=== PATIENT | male | born 1975 | race Two or more races ===

== ENCOUNTER 2018-11-08 06:17 | Emergency (ER) | payer OTHER ==
[~2018-11-08] VITALS: Ht 177.8 cm; Wt 99.8 kg
[2018-11-08 07:03] LABS: Urine Bacteria NONE SEEN /hpf (None Seen); Urine Blood Negative /uL (Negative); Urine Mucus FEW (None Seen); Urine Specific Gravity 1.019 (1.001-1.035); Urine WBC 15 /hpf (0 - 3)
[2018-11-08 07:57] LABS: Basophils # (auto) 0 uL; Basophils % (auto) 0.3 % (0.0-2.0); Eosinophils # (auto) 0.1 uL; Eosinophils % (auto) 1.2 % (0.0-7.0); Hematocrit 42.7 % (41.0-53.0); Hemoglobin 14.3 g/dL (13.5-17.5); Lymphocytes # (auto) 1.4 uL; Lymphocytes % (auto) 22.5 % (10.0-50.0); Mean Corpuscular Hemoglobin 28.9 pg (28.0-32.0); Mean Corpuscular Hgb Conc. 33.5 g/dL (32.0-36.0); Mean Corpuscular Volume 86.5 fL (80.0-100.0); Monocytes # (auto) 0.3 uL; Monocytes % (auto) 5.3 % (0.0-12.0); Neutrophils # (auto) 4.5 uL; Neutrophils % (auto) 70.7 % (37.0-80.0); Nucleated Red Blood Cells % 0.1 %; Platelet Count (auto) 387 10^3/uL (140-450); Red Blood Cells 4.94 10^6/uL (4.5-5.90); Red Cell Distribution Width 13.9 % (11.8-14.3); White Blood Cell 6.4 10^3/uL (4.4-10.8)
[2018-11-08 08:12] LABS: INR 1.01 (0.9-1.15); Partial Thromboplastin Time 33.2 sec (23.78-33.04); Prothrombin Time 10.8 sec (9.27-12.13)
[2018-11-08 08:21] LABS: Potassium 3.8 mmol/L (3.5-5.1)
[2018-11-08 08:24] LABS: Albumin 3.9 g/dL (3.4-5.0); BUN/Creatinine Ratio 12.8; Calcium 8.6 mg/dL (8.5-10.1); Magnesium 2.6 mg/dL (1.6-2.6)
[2018-11-08 08:27] LABS: Bilirubin, Total 0.7 mg/dL (0.2-1.0); Total Protein 8.4 g/dL (6.4-8.2)
[2018-11-08 09:25] VITALS: BP 107/67
[2018-11-08] MEDS ORDERED: cefTRIAXone SOD 1,000 MG VL IM ONE (10:15)
== END 2018-11-08 10:41 | disposition home or self-care (01) ==
LOC: ER 06:17
DX: N39.0 Urinary tract infection, site not specified (principal); N45.1 Epididymitis; Z90.49 Acquired absence of other specified parts of digestive tract
CPT/HCPCS: 36415; 74176; 76870; 80053; 81001; 82150; 83690; 83735; 85025; 85610; 85730; 96372; 99284; J0696

== ENCOUNTER 2023-03-07 12:31 | Emergency (ER) | payer OTHER ==
[~2023-03-07] VITALS: Ht 177.8 cm; Wt 107.0 kg
[2023-03-07 13:58] VITALS: BP 126/79; PULSE 81; RESP 18; TEMP 98.5; O2SAT 97
[2023-03-07] MEDS ORDERED: KETOROLAC TROMETH 60MG/2ML VIAL IM ONE (15:00)
== END 2023-03-07 16:05 | disposition home or self-care (01) ==
LOC: ER 12:31
DX: S00.81XA Abrasion of other part of head, initial encounter (principal); M25.532 Pain in left wrist; Z90.49 Acquired absence of other specified parts of digestive tract; V89.2XXA Person injured in unspecified motor-vehicle accident, traffic, initial encounter; Y93.89 Activity, other specified; Y92.89 Other specified places as the place of occurrence of the external cause; Y99.8 Other external cause status
CPT/HCPCS: 73100; 96372; 99283; J1885

== ENCOUNTER 2023-03-10 04:20 | Emergency (ER) | payer OTHER ==
[~2023-03-10] VITALS: Ht 177.8 cm; Wt 97.7 kg
[2023-03-10 05:26] LABS: Urine Bacteria NONE SEEN /hpf (None Seen); Urine Blood 1+ /uL (Negative); Urine Clarity Clear (Clear); Urine Color Colorless (Yellow); Urine Mucus FEW (None Seen); Urine Protein, UAD 3+ (Negative); Urine Specific Gravity 1.006 (1.001-1.035); Urine Urobilinogen Normal (Negative); Urine WBC 2 /hpf (0 - 3); Urine pH 6.5 (5.0-8.0)
[2023-03-10 06:16] LABS: Basophils # (auto) 0 10 ^3/uL (0-0.2); Basophils % (auto) 0.1 % (0.0-2.0); Eosinophils # (auto) 0 10 ^3/uL (0-0.8); Eosinophils % (auto) 0.4 % (0.0-7.0); Hematocrit 43.1 % (41.0-53.0); Hemoglobin 14.5 g/dL (13.5-17.5); Lymphocytes # (auto) 0.9 10 ^3/uL (0.4-5.4); Lymphocytes % (auto) 7.5 % (10.0-50.0); Mean Corpuscular Hgb Conc. 33.6 g/dL (32.0-36.0); Mean Corpuscular Volume 86.4 fL (80.0-100.0); Monocytes # (auto) 0.7 10 ^3/uL (0-1.3); Monocytes % (auto) 5.4 % (0.0-12.0); Neutrophils # (auto) 10.4 10 ^3/uL (1.6-8.6); Neutrophils % (auto) 86.6 % (37.0-80.0); Nucleated Red Blood Cells % 0.1 %; Red Blood Cells 4.99 10^6/uL (4.5-5.90); Red Cell Distribution Width 13.7 % (11.8-14.3)
[2023-03-10] MEDS ORDERED: IOHEXOL 300 MG/ML 100ML BOTTLE IJ ONE (06:23)
[2023-03-10] MEDS ORDERED: KETOROLAC TROMETH 30 MG/ML 1ML VIAL IV ONE (06:30)
[2023-03-10 06:36] LABS: Albumin 3.4 g/dL (3.4-5.0); Calcium 8.7 mg/dL (8.5-10.1); Potassium 3.8 mmol/L (3.5-5.1)
[2023-03-10 06:40] LABS: BUN/Creatinine Ratio 10.1 (10.0-20.0); Bilirubin, Total 1.4 mg/dL (0.2-1.0); Total Protein 7.3 g/dL (6.4-8.2)
[2023-03-10] MEDS ORDERED: TRAM50TA2 PO (07:06)
[2023-03-10 07:22] VITALS: BP 128/80; PULSE 54; RESP 17; O2SAT 99
== END 2023-03-10 07:29 | disposition home or self-care (01) ==
LOC: ER 04:20
DX: M79.18 Myalgia, other site (principal); R10.84 Generalized abdominal pain; M54.50 Low back pain, unspecified; D72.829 Elevated white blood cell count, unspecified; R51.9 Headache, unspecified; Z90.49 Acquired absence of other specified parts of digestive tract
CPT/HCPCS: 36415; 70450; 71250; 74176; 74177; 80053; 81001; 83690; 85025; 96374; 99285; J1885; Q9967

== ENCOUNTER 2024-04-26 06:28 | Emergency (ER) | payer MEDICAID, OTHER ==
[~2024-04-26] VITALS: Ht 177.8 cm; Wt 99.7 kg
[~2024-04-26 06:28] MED LIST: TRAM50TA2 PO
[2024-04-26 08:05] LABS: Urine Bacteria None Seen /hpf (None Seen)
[2024-04-26 08:31] LABS: Urine Blood Negative /uL (Negative); Urine Clarity Clear (Clear); Urine Color Colorless (Yellow); Urine Protein, UAD Negative (Negative); Urine Specific Gravity 1.004 (1.001-1.035); Urine Urobilinogen Normal (Negative); Urine WBC <1 /hpf (0 - 3); Urine pH 6.5 (5.0-9.0)
[2024-04-26 08:32] LABS: Basophils # (auto) 0 10 ^3/uL (0-0.2); Basophils % (auto) 0.5 % (0.0-2.0); Eosinophils # (auto) 0.2 10 ^3/uL (0-0.8); Eosinophils % (auto) 2.4 % (0.0-7.0); Hematocrit 45.1 % (41.0-53.0); Hemoglobin 15.8 g/dL (13.5-17.5); Lymphocytes # (auto) 2.2 10 ^3/uL (0.4-5.4); Lymphocytes % (auto) 26.3 % (10.0-50.0); Mean Corpuscular Hemoglobin 30.1 pg (28.0-32.0); Mean Corpuscular Hgb Conc. 34.9 g/dL (32.0-36.0); Mean Corpuscular Volume 86.1 fL (80.0-100.0); Monocytes # (auto) 0.3 10 ^3/uL (0-1.3); Neutrophils # (auto) 5.5 10 ^3/uL (1.6-8.6); Neutrophils % (auto) 66.8 % (37.0-80.0); Platelet Count (auto) 319 10^3/uL (140-450); Red Blood Cells 5.24 10^6/uL (4.5-5.90); White Blood Cell 8.2 10^3/uL (4.4-10.8)
[2024-04-26 08:45] LABS: Alanine Aminotransferase 39 U/L (7-40); Albumin 4.9 g/dL (3.2-4.8); Alkaline Phosphatase 61 U/L (46-116); Anion Gap 7 (5-15); Aspartate Aminotransferase 27 U/L (13-40); Bilirubin, Total 1.8 mg/dL (0.2-1.0); Blood Urea Nitrogen 10 mg/dL (9-23); Calcium 9.7 mg/dL (8.7-10.4); Carbon Dioxide 27 mmol/L (20-30); Chloride 104 mmol/L (98-107); Glucose 90 mg/dL (74-106); Potassium 3.9 mmol/L (3.5-5.1); Sodium 138 mmol/L (136-145); Total Protein 7.9 g/dL (5.7-8.2)
[2024-04-26 08:48] LABS: BUN/Creatinine Ratio 10.1 (10.0-20.0)
[2024-04-26 09:46] VITALS: BP 116/72; PULSE 62; RESP 16; TEMP 98.9; O2SAT 99
== END 2024-04-26 11:09 | disposition left against medical advice (07) ==
LOC: ER 06:28
DX: R10.11 Right upper quadrant pain (principal); Z90.49 Acquired absence of other specified parts of digestive tract
CPT/HCPCS: 36415; 74176; 80053; 81001; 85025

== ENCOUNTER 2024-09-05 06:59 | Inpatient (IN) | payer MEDICAID ==
[2024-09-05] VITALS (7 sets, daily range): BP systolic 121–136; BP diastolic 54–88; PULSE 68–86; RESP 14–20; TEMP 98.1–98.4; O2SAT 96–98
[~2024-09-05] VITALS: Ht 177.8 cm; Wt 96.6 kg
--- NOTE | 2024-09-05 07:26 | ED.PDOC ---
History of Present Illness HPI Comments 48 y/o M, presents to the ED for CC of rectal bleeding. Patient states, that he has been experiencing rectal bleeding x6days. Patient describes, stools to be bright red in color. Patient relays, that he is a company tanker truck driver and was unable to have a bowel movement x3days; patient comments on straining himself to try and have a bowel movement and is unsure if this could be the cause of his symptoms. Patient denies abdominal pain, abdominal distension, poor appetite, or N/V/D. No other symptoms or modifying factors at this time. Time Seen by MD: 07:20 Primary Care Provider: XIN Reviewed Notes: Nurses Notes, Medications, Allergies Allergies: Coded Allergies: NO KNOWN ALLERGIES (Unverified , 11/08/18) Home Meds Active Scripts Tramadol Hcl (Tramadol Hcl) 50 Mg Tab, 50 MG PO Q8HP PRN for 5 Days, #15 TAB Prov:TONEY HANEY MD 03/10/23 Information Source: Patient Mode of Arrival: Ambulatory Severity: Moderate Timing: Days Duration: Since onset Prehospital treatment: None Past Medical History PAST MEDICAL HISTORY: Denies Surgical History: Cholecystectomy Family History Family History: Family hx of Cancer, Family hx of HTN Social History Smoker: Non-Smoker Alcohol: Occasionally Drugs: Denies Drug Use Lives In: Home Constitutional: denies: chills, diaphoresis, fatigue, fever, malaise, sweats, weakness, others EENTM: denies: blurred vision, double vision, ear bleeding, ear discharge, ear drainage, ear pain, ear ringing, eye pain, eye redness, hearing loss, mouth pain, mouth swelling, nasal discharge, nose bleeding, nose congestion, nose pain, photophobia, tearing, throat pain, throat swelling, voice changes, others Respiratory: denies: cough, hemoptysis, orthopnea, SOB at rest, shortness of breath, SOB with excertion, stridor, wheezing, others Cardiovascular: denies: chest pain, dizzy spells, diaphoresis, Dyspnea on exertion, edema, irregular heart beat, left arm pain, lightheadedness, palpitations, PND, syncope, others Gastrointestinal: reports: constipated, rectal bleeding, rectal pain; denies: abdomen distended, abdominal pain, blood streaked bowels, diarrhea, dysphagia, difficulty swallowing, hematemesis, melena, nausea, poor appetite, poor fluid intake, vomiting, others Genitourinary: denies: burning, dysuria, flank pain, frequency, hematuria, incontinence, penile discharge, penile sore, pain, testicle pain, testicle swelling, urgency, others Neurological: denies: dizziness, fainting, headache, left sided numbness, left sided weakness, numbness, paresthesia, pre-existing deficit, right sided numbness, right sided weakness, seizure, speech problems, tingling, tremors, weakness, others Musculoskeletal: denies: back pain, gout, joint pain, joint swelling, muscle pain, muscle stiffness, neck pain, others Integumetry: denies: bruises, change in color, change in hair/nails, dryness, laceration, lesions, lumps, rash, wounds, others Allergic/Immunocompromised: denies: Difficulty Healing, Frequent Infections, Hives, Itching, others Hematologic/Lymphatic: denies: anemia, blood clots, easy bleeding, easy bruising, swollen glands, others Endocrine: denies: excessive hunger, excessive sweating, excessive thirst, excessive urination, flushing, intolerance to cold, intolerance to heat, unexplained weight gain, unexplained weight loss, others Psychiatric: denies: anxiety, bipolar disorder, depression, hopeless, panic disorder, schizophrenia, sleepless, suicidal, others All Other Systems: Reviewed and Negative Physical Exam General Appearance: Moderate Distress HEENT: Normal ENT Inspection, Pharynx Normal, TMs Normal Neck: Full Range of Motion, Non-Tender, Normal, Normal Inspection Respiratory: Chest Non-Tender, Lungs Clear, No Accessory Muscle Use, No Respiratory Distress, Normal Breath Sounds Cardiovascular: No Edema, No JVD, No Murmur, No Gallop, Normal Peripheral Pulses, Regular Rate/Rhythm Breast Exam: Deferred Gastrointestinal: No Organomegaly, Non Tender, No Pulsatile Mass, Normal Bowel Sounds, Soft Genitalia: Deferred Pelvic: Deferred Rectal: Hemorrhoids Extremities: No calf tenderness, Normal capillary refill, Normal inspection, Normal range of motion, Non-tender, No pedal edema Musculoskeletal : Apperance: Normal Neurologic: Alert, 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 Was a procedure done?: No Differential Dx Considerations may include: HEMORRHOIDS, GI BLEED X-Ray, Labs, Meds, VS Vital Signs Date Time Temp Pulse Resp B/P (MAP) Pulse Ox O2 Delivery O2 Flow Rate FiO2 09/05/24 07:20 97.0 82 18 117/80 (92) 98 Lab Test 09/05/24 07:29 Range/Units White Blood Count 9.5 4.4-10.8 10^3/uL Red Blood Count 5.27 4.5-5.90 10^6/uL Hemoglobin 15.8 13.5-17.5 g/dL Hematocrit 45.4 41.0-53.0 % Mean Corpuscular Volume 86.0 80.0-100.0 fL Mean Corpuscular Hemoglobin 30.0 28.0-32.0 pg Mean Corpuscular Hemoglobin Concent 34.8 32.0-36.0 g/dL Red Cell Distribution Width 14.0 11.8-14.3 % Platelet Count 288 140-450 10^3/uL Mean Platelet Volume 7.7 6.9-10.8 fL Neutrophils (%) (Auto) 81.1 H 37.0-80.0 % Lymphocytes (%) (Auto) 12.2 10.0-50.0 % Monocytes (%) (Auto) 4.9 0.0-12.0 % Eosinophils (%) (Auto) 1.4 0.0-7.0 % Basophils (%) (Auto) 0.4 0.0-2.0 % Neutrophils # (Auto) 7.7 1.6-8.6 10 ^3/uL Lymphocytes # (Auto) 1.2 0.4-5.4 10 ^3/uL Monocytes # (Auto) 0.5 0-1.3 10 ^3/uL Eosinophils # (Auto) 0.1 0-0.8 10 ^3/uL Basophils # (Auto) 0 0-0.2 10 ^3/uL Nucleated Red Blood Cells 0.1 % Sodium Level Pending Potassium Level Pending Chloride Level Pending Carbon Dioxide Level Pending Anion Gap Pending Blood Urea Nitrogen Pending Creatinine Pending Glomerular Filtration Rate Calc Pending BUN/Creatinine Ratio Pending Serum Glucose Pending Calcium Level Pending Patient alert. Having bright red blood per rectum. Vitals stable. Answering all questions. Possible hemorrhoid. Surgical consultation. WBC within normal limits. Hemoglobin within normal limits. Possible banding. Explained to the patient. Continue cardiac monitoring. Time of 1ST Reevaluation: 07:50 Reevaluation 1ST: Unchanged Patient Education/Counseling: Diagnosis, Treatment Family Education/Counseling: No Family Present Departure 1 Departure Time of Disposition: 08:25 Impression: Primary Impression: Rectal bleeding Additional Impression: Hemorrhoid Qualified Codes: K64.9 - Unspecified hemorrhoids Disposition: ADMITTED INPATIENT Admit to: Med Surg Condition: Guarded Critical Care Note Critical Care Time?: No Stability Stability form required: No Heart Score Heart Score: Heart Score Response (Comments) Value History N/A 0 EKG N/A 0 Age N/A 0 Risk Factors N/A 0 Troponin N/A 0 Total 0 I personally scribed for MARLENA MCKINNON MD ([email or web address]) on 09/05/24 at 07:26. Electronically submitted by Celina Mooney ([email or web address]). MARLENA MCKINNON MD Sep 05, 2024 07:26
[2024-09-05 07:55] LABS: Basophils # (auto) 0 10 ^3/uL (0-0.2); Basophils % (auto) 0.4 % (0.0-2.0); Eosinophils # (auto) 0.1 10 ^3/uL (0-0.8); Eosinophils % (auto) 1.4 % (0.0-7.0); Hematocrit 45.4 % (41.0-53.0); Hemoglobin 15.8 g/dL (13.5-17.5); Lymphocytes # (auto) 1.2 10 ^3/uL (0.4-5.4); Lymphocytes % (auto) 12.2 % (10.0-50.0); Mean Corpuscular Hgb Conc. 34.8 g/dL (32.0-36.0); Monocytes # (auto) 0.5 10 ^3/uL (0-1.3); Monocytes % (auto) 4.9 % (0.0-12.0); Neutrophils # (auto) 7.7 10 ^3/uL (1.6-8.6); Neutrophils % (auto) 81.1 % (37.0-80.0); Nucleated Red Blood Cells % 0.1 %; Platelet Count (auto) 288 10^3/uL (140-450); Red Blood Cells 5.27 10^6/uL (4.5-5.90); White Blood Cell 9.5 10^3/uL (4.4-10.8)
[2024-09-05 08:51] LABS: Chloride 102 mmol/L (98-107); Potassium 3.9 mmol/L (3.5-5.1); Sodium 136 mmol/L (136-145)
[2024-09-05] MEDS: ONDANSETRON HCL 4 MG/2 ML VIAL IV ONE (08:58)
[2024-09-05] MEDS: MORPHINE SULFATE INJ 2 MG/ml SYRG IV ONE (08:59)
[2024-09-05 09:00] LABS: BUN/Creatinine Ratio 9.3 (10.0-20.0); Blood Urea Nitrogen 9 mg/dL (9-23); Glucose 103 mg/dL (74-106)
[2024-09-05 09:12] LABS: Anion Gap 9 (5-15); Carbon Dioxide 25 mmol/L (20-31)
[2024-09-05] MEDS ORDERED: DOCUSATE SOD 100 MG CAP PO PRN (10:00)
[2024-09-05] MEDS ORDERED: ONDANSETRON HCL 4 MG/2 ML VIAL IV PRN (10:00)
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
[2024-09-05] MEDS: SODIUM CHLOR 0.9% PF (SALINE LOCK) 10ML VIAL/SYR IV SCH (14:05)
[2024-09-05] MEDS ORDERED: IBUP-1678 PO (14:07)
[2024-09-05 14:33] LABS: Hemoglobin 15.4 g/dL (13.5-17.5)
[2024-09-05] MEDS: HYDROcodone-ACET 5/325MG TAB PO PRN (15:02)
[2024-09-05] MEDS: ACETAMINOPHEN 325 MG TAB PO PRN (19:49)
[2024-09-05 23:24] LABS: Urine Bacteria None Seen /hpf (None Seen)
[2024-09-06] VITALS (8 sets, daily range): BP systolic 113–122; BP diastolic 72–84; PULSE 65–76; RESP 13–18; TEMP 97.7–98.2; O2SAT 94–99
[2024-09-06 00:10] LABS: Urine Blood TRACE /uL (Negative); Urine Clarity Clear (Clear); Urine Color Colorless (Yellow); Urine Protein, UAD Negative (Negative); Urine Specific Gravity 1.006 (1.001-1.035); Urine Squamous Epithelial Cell None Seen /hpf (<5); Urine Urobilinogen Normal (Negative); Urine WBC < 1 /HPF (0-3)
[2024-09-06 06:17] LABS: Basophils # (auto) 0 10 ^3/uL (0-0.2); Basophils % (auto) 0.7 % (0.0-2.0); Eosinophils # (auto) 0.2 10 ^3/uL (0-0.8); Eosinophils % (auto) 3.1 % (0.0-7.0); Hematocrit 43.7 % (41.0-53.0); Hemoglobin 15.3 g/dL (13.5-17.5); Lymphocytes # (auto) 1.3 10 ^3/uL (0.4-5.4); Lymphocytes % (auto) 23.9 % (10.0-50.0); Mean Corpuscular Hemoglobin 29.8 pg (28.0-32.0); Mean Corpuscular Hgb Conc. 34.9 g/dL (32.0-36.0); Mean Corpuscular Volume 85.5 fL (80.0-100.0); Monocytes # (auto) 0.5 10 ^3/uL (0-1.3); Neutrophils # (auto) 3.5 10 ^3/uL (1.6-8.6); Neutrophils % (auto) 63.3 % (37.0-80.0); Platelet Count (auto) 262 10^3/uL (140-450); Red Blood Cells 5.11 10^6/uL (4.5-5.90); Red Cell Distribution Width 13.9 % (11.8-14.3); White Blood Cell 5.5 10^3/uL (4.4-10.8)
[2024-09-06 06:37] LABS: Albumin 4.7 g/dL (3.2-4.8); Alkaline Phosphatase 84 U/L (46-116); Anion Gap 7 (5-15); BUN/Creatinine Ratio 8.4 (10.0-20.0); Bilirubin, Total 0.9 mg/dL (0.2-1.0); Calcium 9.5 mg/dL (8.7-10.4); Carbon Dioxide 29 mmol/L (20-31); Chloride 103 mmol/L (98-107); Potassium 3.9 mmol/L (3.5-5.1); Sodium 139 mmol/L (136-145); Total Protein 7.4 g/dL (5.7-8.2)
[2024-09-06 06:41] LABS: Alanine Aminotransferase 73 U/L (7-40); Aspartate Aminotransferase 77 U/L (13-40); Blood Urea Nitrogen 7 mg/dL (9-23); Glucose 97 mg/dL (74-106)
[2024-09-06] MEDS: GASTROGRAFIN 30 ML SOL ONE (13:54)
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
[2024-09-06] MEDS: HYDROCORTISONE ACET 25 MG RECTAL SUPP PR ONE (15:00)
[2024-09-06] MEDS: cefTRIAXone 1GM/50ML D5W 50 ML IV SCH (15:21)
--- NOTE | 2024-09-06 16:53 | DVHPN2 ---
Reviewed: Care Plan, H&P, Labs, Medications, Previous Orders, Radiology Changes from previous H/P or p: No Changes Eyes: No Pain, No Vision change, No Conjunctivae inflammation, No Eyelid inflammation, No Other, No Redness ENT: No Ear pain, No Ear discharge, No Nose pain, No Nose discharge, No Nose congestion, No Mouth pain, No Mouth swelling, No Throat pain, No Throat swelling, No Other Cardiovascular: No Chest Pain, No Palpitations, No Orthopnea, No Paroxysmal Noc. Dyspnea, No Edema, No Lt Headedness, No Other Respiratory: No Cough, No Dry, No Shortness of breath, No SOB with excertion, No Wheezing, No Hemoptysis, No Pleuritic Pain, No Sputum, No Other Gastrointestinal: No Nausea, No Vomiting, No Abdominal Pain, No Diarrhea; C onstipation; No Melena, No Hematochezia; Other (Rectal bleeding) Genitourinary: No Dysuria, No Frequency, No Incontinence, No Hematuria, No Retention, No Other Musculoskeletal: No other, No neck pain, No shoulder pain, No arm pain, No back pain, No hand pain, No leg pain, No foot pain Skin: No Rash, No Lesions, No Jaundice, No Bruising, No Other Objective Vitals Vital Signs Date Time Temp Pulse Resp B/P (MAP) Pulse Ox O2 Delivery O2 Flow Rate FiO2 09/06/24 16:42 98.0 70 16 116/79 (91) 98 98.0 09/06/24 08:00 Room Air* 0 21 Intake/Output Intake and Output 09/06/24 07:00 Intake Total 680 ml Output Total 500 ml Balance 180 ml Intake Oral 680 ml Output Urine Total 500 ml Stool Total 0 ml # Voids 1 Medications Current Medications Medications Dose Ordered Sig/Cori Route Start Time Stop Time Status Last Admin Dose Admin Sodium Chloride 10 ml Q8HR IV 09/05/24 14:00 09/06/24 13:35 10 ML Acetaminophen/ Hydrocodone Bitart 1 tab Q4HP PRN PO 09/05/24 10:00 09/06/24 12:02 1 TAB Ondansetron HCl 4 mg Q4HP PRN IV 09/05/24 10:00 Docusate Sodium 100 mg BIDPRN PRN PO 09/05/24 10:00 Acetaminophen 650 mg Q6HP PRN PO 09/05/24 10:00 09/06/24 08:28 650 MG Ceftriaxone Sodium 50 ml @ 100 mls/hr DAILY@09 IV 09/06/24 16:00 09/06/24 15:21 100 MLS/HR Laboratory Results Laboratory Tests 09/06/24 05:51 Chemistry Test 09/06/24 05:51 Albumin 4.7 g/dL (3.2-4.8) Calcium Level 9.5 mg/dL (8.7-10.4) Total Protein 7.4 g/dL (5.7-8.2) LFT Test 09/06/24 05:51 Alanine Aminotransferase (ALT) 73 U/L (7-40) H Alkaline Phosphatase 84 U/L (46-116) Aspartate Amino Transferase (AST) 77 U/L (13-40) H Total Bilirubin 0.9 mg/dL (0.2-1.0) Urinalysis Test 09/05/24 23:15 Urine Color Colorless (Yellow) Urine Clarity Clear (Clear) Urine pH 6.0 (5.0-9.0) Urine Specific [place] 1.006 (1.001-1.035) Urine Protein Negative (Negative) Urine Ketones Negative (Negative) Urine Blood Trace /uL (Negative) H Urine Nitrite Negative (Negative) Urine Bilirubin Negative (Negative) Urine Urobilinogen Normal mg/dL (Negative) Urine Leukocyte Esterase Negative /uL (Negative) Urine RBC 1 /hpf (0 - 3) Urine Microscopic WBC < 1 /HPF (0-3) Urine Squamous Epithelial Cells None seen /hpf (<5) Urine Bacteria None seen /hpf (None Seen) Urine Glucose Normal mg/dL (Normal) Labs and/or images reviewed: Labs reviewed by me, Image(s) reviewed by me Assessment/Plan Assessment/Plan Rectal bleed hemoglobin stable at 15.0, CT abdomen pelvis without contrast pending , GI consult appreciated Constipation Plan discussed with: Patient Date of Service: Sep 06, 2024 Billing Provider: CRISTOFER ESPINOZA MD Common Visit Codes: [id number] INP/OBS CARE(HIGH) CRISTOFER ESPINOZA MD Sep 06, 2024 16:53
--- NOTE | 2024-09-06 17:12 | DVH ---
Exam: CT CT AB PEL WITH ORAL CON ONLY History: rectal bleeding c mucusy discharge Comparison Study: CT CT AB PEL WO CON-NO ORAL OR IV on DOS: 04/26/24, CT CT AB PEL WITH IV CON ONLY o n DOS: 03/10/23 Technique: Multidetector spiral CT of the abdomen and pelvis was performed from lung bases to pubic symphysis. Imaging was performed without IV contrast. Axial, coronal and sagittal multiplanar reform ats were obtained from the axial data set by the technologist. Radiation dose : Abdomen/Pelvis: CTDIvol 12 mGy, DLP 779.24 mGy*cm. Findings: Evaluation of solid organs is limited due to lack of intravenous contrast use. Lung Bases: No acute or significant lung base finding. Normal heart size. No pleural or pericardial effusion. Liver: The liver is normal in size. No focal lesions. Gallbladder and biliary Tree: Gallbladder is surgically absent. Spleen: Unremarkable Pancreas: The pancreas is grossly normal in appearance. Adrenal Glands: Unremarkable Kidneys: Kidneys are grossly normal without calculi or hydronephrosis. Bladder: Grossly unremarkable for degree of distention. Bowel: The stomach is grossly normal in appearance. Small bowel and colon are normal in caliber and d istribution. Normal appendix is visualized in the right lower quadrant without findings of appendici tis. Ascites: Absent Lymphadenopathy: No mesenteric, retroperitoneal or periportal lymphadenopathy. Abdominal wall and Mesentery: Unremarkable. Vasculature: The visualized abdominal aorta is normal in size and caliber. Evaluation of abdominal a nd pelvic vessels is limited due to lack of intravenous contrast. Pelvic Organs: Unremarkable Musculoskeletal: No aggressive focal bony lesions, acute fractures or dislocation. IMPRESSION: 1. No acute abdominal or pelvic findings. Radiation optimization: All CT scans at this facility use at least one of these dose optimization sherron hniques: Automated exposure control mA and/or kV adjustment per patient size (includes targeted exams where dose is matched to clinical indication) or iterative reconstruction. HS:Y
[2024-09-07 01:00] VITALS: BP 114/74; PULSE 66; RESP 19; TEMP 97.9; O2SAT 92
[2024-09-07 05:00] VITALS: BP 116/78; PULSE 65; RESP 18; TEMP 97.8; O2SAT 97
[2024-09-07 08:00] VITALS: PULSE 75; RESP 18; O2SAT 98
--- NOTE | 2024-09-07 08:47 | DVHPN2 ---
Reviewed: Care Plan, H&P, Labs, Medications, Previous Orders, Radiology Changes from previous H/P or p: No Changes Eyes: No Pain, No Vision change, No Conjunctivae inflammation, No Eyelid inflammation, No Other, No Redness ENT: No Ear pain, No Ear discharge, No Nose pain, No Nose discharge, No Nose congestion, No Mouth pain, No Mouth swelling, No Throat pain, No Throat swelling, No Other Cardiovascular: No Chest Pain, No Palpitations, No Orthopnea, No Paroxysmal Noc. Dyspnea, No Edema, No Lt Headedness, No Other Respiratory: No Cough, No Dry, No Shortness of breath, No SOB with excertion, No Wheezing, No Hemoptysis, No Pleuritic Pain, No Sputum, No Other Gastrointestinal: No Nausea, No Vomiting, No Abdominal Pain, No Diarrhea; C onstipation; No Melena, No Hematochezia; Other (Rectal bleeding) Genitourinary: No Dysuria, No Frequency, No Incontinence, No Hematuria, No Retention, No Other Musculoskeletal: No other, No neck pain, No shoulder pain, No arm pain, No back pain, No hand pain, No leg pain, No foot pain Skin: No Rash, No Lesions, No Jaundice, No Bruising, No Other Objective Vitals Vital Signs Date Time Temp Pulse Resp B/P (MAP) Pulse Ox O2 Delivery O2 Flow Rate FiO2 09/07/24 05:00 97.8 65 18 116/78 (91) 97 97.8 09/06/24 20:00 Room Air* 0 21 Intake/Output Intake and Output 09/07/24 07:00 Intake Total 1790 ml Balance 1790 ml Intake Oral 1740 ml IV Total 50 ml # Voids 4 Medications Current Medications Medications Dose Ordered Sig/Cori Route Start Time Stop Time Status Last Admin Dose Admin Sodium Chloride 10 ml Q8HR IV 09/05/24 14:00 09/07/24 05:23 10 ML Acetaminophen/ Hydrocodone Bitart 1 tab Q4HP PRN PO 09/05/24 10:00 09/06/24 23:14 1 TAB Ondansetron HCl 4 mg Q4HP PRN IV 09/05/24 10:00 Docusate Sodium 100 mg BIDPRN PRN PO 09/05/24 10:00 Acetaminophen 650 mg Q6HP PRN PO 09/05/24 10:00 09/07/24 08:02 650 MG Ceftriaxone Sodium 50 ml @ 100 mls/hr DAILY@09 IV 09/06/24 16:00 09/06/24 15:21 100 MLS/HR Laboratory Results Laboratory Tests 09/06/24 05:51 Urinalysis Test 09/05/24 23:15 Urine Color Colorless (Yellow) Urine Clarity Clear (Clear) Urine pH 6.0 (5.0-9.0) Urine Specific [place] 1.006 (1.001-1.035) Urine Protein Negative (Negative) Urine Ketones Negative (Negative) Urine Blood Trace /uL (Negative) H Urine Nitrite Negative (Negative) Urine Bilirubin Negative (Negative) Urine Urobilinogen Normal mg/dL (Negative) Urine Leukocyte Esterase Negative /uL (Negative) Urine RBC 1 /hpf (0 - 3) Urine Microscopic WBC < 1 /HPF (0-3) Urine Squamous Epithelial Cells None seen /hpf (<5) Urine Bacteria None seen /hpf (None Seen) Urine Glucose Normal mg/dL (Normal) Labs and/or images reviewed: Labs reviewed by me, Image(s) reviewed by me Assessment/Plan Assessment/Plan Rectal bleed hemoglobin stable at 15.0, CT abdomen pelvis with oral contrast negative, GI consult appreciated Constipation Discussed with the patient and is willing to be discharged for outpatient colonoscopy: Plan discussed with: Patient My Orders Orders - CRISTOFER ESPINOZA MD Procedure Category Date Status Time Regular Diet DIET 09/06/24 Transmitted Dinner Date of Service: Sep 07, 2024 Billing Provider: CRISTOFER ESPINOZA MD Common Visit Codes: 84200-[id number] INP/OBS CARE(HIGH) CRISTOFER ESPINOZA MD Sep 07, 2024 08:47
--- NOTE | 2024-09-07 08:50 | DVHDS2 ---
Discharge Summary Date of Admission Sep 05, 2024 at 09:54 Date of Discharge: Sep 07, 2024 Admitting Diagnosis Rectal bleeding Wounds: None Labs/Diagnostic Data: Laboratory Results Test 09/06/24 05:51 09/05/24 23:15 White Blood Count 5.5 10^3/uL (4.4-10.8) Red Blood Count 5.11 10^6/uL (4.5-5.90) Hemoglobin 15.3 g/dL (13.5-17.5) Hematocrit 43.7 % (41.0-53.0) Mean Corpuscular Volume 85.5 fL (80.0-100.0) Mean Corpuscular Hemoglobin 29.8 pg (28.0-32.0) Mean Corpuscular Hemoglobin Concent 34.9 g/dL (32.0-36.0) Red Cell Distribution Width 13.9 % (11.8-14.3) Platelet Count 262 10^3/uL (140-450) Mean Platelet Volume 7.3 fL (6.9-10.8) Neutrophils (%) (Auto) 63.3 % (37.0-80.0) Lymphocytes (%) (Auto) 23.9 % (10.0-50.0) Monocytes (%) (Auto) 9.0 % (0.0-12.0) Eosinophils (%) (Auto) 3.1 % (0.0-7.0) Basophils (%) (Auto) 0.7 % (0.0-2.0) Neutrophils # (Auto) 3.5 10 ^3/uL (1.6-8.6) Lymphocytes # (Auto) 1.3 10 ^3/uL (0.4-5.4) Monocytes # (Auto) 0.5 10 ^3/uL (0-1.3) Eosinophils # (Auto) 0.2 10 ^3/uL (0-0.8) Basophils # (Auto) 0 10 ^3/uL (0-0.2) Nucleated Red Blood Cells 0.0 % Sodium Level 139 mmol/L (136-145) Potassium Level 3.9 mmol/L (3.5-5.1) Chloride Level 103 mmol/L (98-107) Carbon Dioxide Level 29 mmol/L (20-31) Anion Gap 7 (5-15) Blood Urea Nitrogen 7 mg/dL (9-23) Creatinine 0.83 mg/dL (0.700-1.30) Glomerular Filtration Rate Calc 109 mL/min (>90) BUN/Creatinine Ratio 8.4 (10.0-20.0) Serum Glucose 97 mg/dL (74-106) Calcium Level 9.5 mg/dL (8.7-10.4) Total Bilirubin 0.9 mg/dL (0.2-1.0) Aspartate Amino Transferase (AST) 77 U/L (13-40) Alanine Aminotransferase (ALT) 73 U/L (7-40) Alkaline Phosphatase 84 U/L (46-116) Total Protein 7.4 g/dL (5.7-8.2) Albumin 4.7 g/dL (3.2-4.8) Urine Color Colorless (Yellow) Urine Clarity Clear (Clear) Urine pH 6.0 (5.0-9.0) Urine Specific [place] 1.006 (1.001-1.035) Urine Protein Negative (Negative) Urine Ketones Negative (Negative) Urine Blood Trace /uL (Negative) Urine Nitrite Negative (Negative) Urine Bilirubin Negative (Negative) Urine Urobilinogen Normal mg/dL (Negative) Urine Leukocyte Esterase Negative /uL (Negative) Urine RBC 1 /hpf (0 - 3) Urine Microscopic WBC < 1 /HPF (0-3) Urine Squamous Epithelial Cells None seen /hpf (<5) Urine Bacteria None seen /hpf (None Seen) Urine Glucose Normal mg/dL (Normal) Other Laboratory Tests 09/06/24 05:51 Brief Hx & Hospital Course: 48-year-old male with no medical history came in for rectal bleeding hemoglobin 15 and stable. Seen by GI Dr. Leon Morillo ordered CT abdomen pelvis with the oral contrast which is negative. Patient being discharged home he was advised to have outpatient colonoscopy by Dr. Leon Morillo as soon as possible. The plan is acceptable with the patient Consults/Reason for consult GI Dr. Leon Morillo Operations or Procedures CT abdomen pelvis with oral contrast Condition at Discharge: Fair Final Diagnosis/Problems List Rectal bleeding Discharge Disposition: Home Discharge Instruct/Medications Diet: Regular Activity: No Restrictions, As Tolerated Follow Up/Referral: Follow up with GI Dr. Leon Morillo for outpatient colonoscopy Medications: none 39 (Time taken for discharge summary 39 minutes) Discharge Statement: "Patient was advised to return to the ER or call 911 if any headaches, dizziness, shortness of breath, chest pain, abdominal pain, bleeding, fevers, or worsening of medical condition. Patient was counseled about treatment plan, medications, possible side effects, patientverbalized understanding. All questions were answered to the best of my ability. This discharge took greater then 30 minutes in planning, reviewing documentation, counseling the patient, and discussing with other team members." ASSESSMENT ASSESSMENT Hospital Course Uneventful Assessment Rectal bleeding Date of Service: Sep 07, 2024 Billing Provider: CRISTOFER ESPINOZA MD Common Visit Codes: 01228-DFU/OBS DISCH DAY >30min CRISTOFER ESPINOZA MD Sep 07, 2024 08:50
[2024-09-07 09:00] VITALS: BP 132/87; PULSE 75; RESP 18; TEMP 98.4; O2SAT 98
[2024-09-07 09:21] LABS: Hepatitis B Core Total AB Negative (Negative)
[2024-09-07 10:26] VITALS: BP 132/87; PULSE 75; RESP 18; TEMP 98.4; O2SAT 98
[2024-09-07 10:37] LABS: Hepatitis A Total Antibody Negative (Negative); Hepatitis B Surface Antibody Negative (Negative); Hepatitis B Surface Antigen Negative (Negative); Hepatitis C Antibody Negative (Negative)
--- NOTE | 2024-09-07 21:51 | DVHPN2 ---
Progress Note - Dictate Date Seen: Sep 07, 2024 (Late entry Patient seen at 10:00 a.m.) Medical Necessity Reason Pt with a Central, PICC or Fol: No Subjective Patient seen at bedside There was no further rectal bleeding CT scan is negative H&H is stable vital signs Vital Sign Date Time Temp Pulse Resp B/P (MAP) Pulse Ox O2 Delivery O2 Flow Rate FiO2 09/07/24 10:26 98.4 75 18 98 09/07/24 09:00 132/87 (102) 09/07/24 08:00 Room Air* 0 21 Total Intake and Output 09/06/24 09/06/24 09/07/24 15:00 23:00 07:00 Intake Total 1050 ml 740 ml Balance 1050 ml 740 ml objective General: NAD, AAOX3 Chest: lung mata clear to auscultation Heart: RRR, no murmur Abdomen: no tenderness to palpation, +BS, rectal exam small hemorrhoid noted. No bleeding. Slight redness around the rectal area no tears noted laboratory and microbiology Laboratory Tests 09/06/24 05:51 Test 09/06/24 05:51 Range/Units Serum Glucose 97 74-106 mg/dL Problems(with codes): (1) Rectal bleeding (2) Hemorrhoid Prognosis Plan Discharge planning is in progress Patient was told to avoid aspirin NSAIDs Avoid constipation, increase fluid fiber, stool softeners Outpatient follow up with me in 2-4 weeks to arrange outpatient elective colonoscopy Plan discussed with: Patient, Spouse, Other (Nurse and Dr Ham) ROMAN ALBERTS MD Sep 07, 2024 21:51
== END 2024-09-07 10:56 | disposition home or self-care (01) | DRG 253 ==
LOC: ER 06:59 → OVERFLOW 09:54 → CENTRAL 10:01
PROVIDERS: ADMIT Nurse Practitioner Family; ATTEND Family Medicine
DX: K62.5 Hemorrhage of anus and rectum (principal); E78.5 Hyperlipidemia, unspecified; K64.8 Other hemorrhoids; K59.00 Constipation, unspecified; Z82.49 Family history of ischemic heart disease and other diseases of the circulatory system; Z90.49 Acquired absence of other specified parts of digestive tract; Z63.4 Disappearance and death of family member; Z80.0 Family history of malignant neoplasm of digestive organs
CPT/HCPCS: 36415; 74176; 80048; 80053; 81001; 85014; 85018; 85025; 86704; 86706; 86708; 86803; 87340; 96374; 96375; G0378; J2405

== ENCOUNTER → 2025-03-16 | Day surgery (SDC) | payer MEDICAID ==
[2025-03-13 08:50] LABS: Urine Protein, UAD Negative (Negative)
[2025-03-13 08:55] LABS: Hematocrit 44.1 % (41.0-53.0); Hemoglobin 15.2 g/dL (13.5-17.5); Mean Corpuscular Hemoglobin 29.3 pg (28.0-32.0); Mean Corpuscular Volume 84.9 fL (80.0-100.0); Nucleated Red Blood Cells % 0.0 %
[2025-03-13 09:07] LABS: INR 1.01 (0.9-1.15); Partial Thromboplastin Time 30.5 SEC (24.5-34.5); Prothrombin Time 10.7 sec (9.3-11.8)
[2025-03-13 09:23] LABS: Alanine Aminotransferase 29 U/L (7-40); Albumin 5.0 g/dL (3.2-4.8); Alkaline Phosphatase 60 U/L (46-116); Anion Gap 8 (5-15); BUN/Creatinine Ratio 6.8 (10.0-20.0); Blood Urea Nitrogen 6 mg/dL (9-23); Calcium 9.3 mg/dL (8.7-10.4); Carbon Dioxide 28 mmol/L (20-31); Chloride 105 mmol/L (98-107); Glucose 93 mg/dL (74-106); Potassium 4.0 mmol/L (3.5-5.1); Sodium 141 mmol/L (136-145); Total Protein 7.6 g/dL (5.7-8.2)
[2025-03-13 09:24] LABS: Bilirubin, Total 0.9 mg/dL (0.2-1.0)
[~2025-03-16] VITALS: Ht 177.8 cm; Wt 96.2 kg
[~2025-03-16] MED LIST changes: +LIDOCAINE 2% (LOCAL ANESTH.) PF 5ml SDV ONE; +MAGN400T40 PO; +MULT-1168 PO; +PROPOFOL 10 MG/ML 20 ML IV ONE; -TRAM50TA2 PO
[2025-03-16 10:12] VITALS: PULSE 72; RESP 13; TEMP 97.8; O2SAT 98
[2025-03-16 10:22] VITALS: PULSE 66; RESP 13; O2SAT 99
[2025-03-16 10:42] VITALS: BP 102/54; PULSE 74; RESP 15; O2SAT 99
--- NOTE | 2025-03-16 12:03 | DVHOP2 ---
Operative Report DATE OF OPERATION: 03/16/25 PROCEDURE: Upper Endoscopy with biopsy. PREOPERATIVE INDICATION: The patient is a 49 -year-old male undergoing endoscopy for chronic GERD POSTOPERATIVE DIAGNOSES: 1. 1-2 cm sliding-type hiatal hernia with minimal grade a erosive esophagitis 2. Mild Gastritis otherwise normal examination of the 2nd and 3rd part of the duodenal PROCEDURE PERFORMED BY: Roman Morillo GI NURSE: Emre SCOPE: Olympus videoendoscope. ASA CLASS: 2. PREOPERATIVE MEDICATIONS: Mac sedation, Shay Waters PROCEDURE IN DETAIL: After obtaining an informed consent, the patient was placed on left lateral decubitus position. The patient was then sedated with the above medications. A bite block was placed between his teeth. The endoscope was then passed through the oropharynx, into the esophagus, and through the stomach and pylorus up to the second and third part of the duodenum. The endoscope was then withdrawn. Second 3rd part of the duodenum and the duodenal bulb were normal. Duodenal biopsies were obtained The pre-pyloric area antrum and body showed mild gastritis. Gastric biopsies were obtained. On retroflexion the fundus cardia and angularis were normal. The endoscope was then withdrawn into the distal esophagus Patient had a 1-2 cm sliding-type hiatal hernia with slightly irregular squamocolumnar junction grade a erosive esophagitis. GE junction biopsies were obtained The remaining distal and proximal esophagus and oropharynx were unremarkable The patient tolerated the procedure well without difficulty. COMPLICATIONS : None SPECIMENS: Duodenal biopsies Gastric biopsies GE junction biopsies DISPOSITION: Stable D/C to home PLAN: 1. Await for biopsy result 2. Will place pt on Protonix 40 mg p.o. daily 3. Resume GI soft diet advance as tolerated 4. Lifestyle modifications for GERD 5. Outpatient follow up with me in 4-6 weeks to review results and discuss further management ROMAN MORILLO MD Mar 16, 2025 12:03
--- NOTE | 2025-03-16 12:06 | DVHOP2 ---
Operative Report DATE OF OPERATION: 03/16/25 PROCEDURE: Diagnostic Colonoscopy. PREOPERATIVE INDICATION: The patient is a 49 -year-old male undergoing colonoscopy for colon cancer screening with a history of rectal bleeding POSTOPERATIVE DIAGNOSES: 1. One to 2+ slightly engorged internal hemorrhoids which were the likely source of recent GI bleeding 2. Otherwise essentially completely normal colonoscopy examination up to the cecum PROCEDURE PERFORMED BY: Roman Morillo M.D. SCOPE: Olympus videocolonoscope. ASA CLASS: 2. PREOPERATIVE MEDICATIONS: Mac sedation, Shay Waters PROCEDURE IN DETAIL: After obtaining an informed consent, the patient was placed on left lateral decubitus position. He was then sedated with the above medications. A rectal examination was performed that was normal. The colonoscope was then passed through the anus into the rectosigmoid and through the descending, transverse, and ascending colon up to the cecum with visualization of the appendiceal orifice, base of the cecum and the ileocecal valve. The colonoscope was then withdrawn. No polyps or masses were seen. There was no colitis There was no clear-cut diverticular disease. On retroflexion and straight on view patient had one to 2+ internal hemorrhoids These were slightly engorged and were the likely source of recent bleeding. The colonoscope was then withdrawn The patient tolerated the procedure well without difficulty. WITHDRAWAL TIME: 6 minutes QUALITY OF THE PREP: [place] Bowel Prep score: 9. COMPLICATIONS : None SPECIMENS: None DISPOSITION: Stable D/C to home PLAN: 1. Repeat colonoscopy in 10 years 2. Resume GI soft diet advance as tolerated 3. Local anorectal hemorrhoidal care 4. Outpatient follow up with me in 4-6 weeks to review results and discuss further management ROMAN MORILLO MD Mar 16, 2025 12:06
== END | disposition home or self-care (01) ==
LOC: GI 07:57
PROVIDERS: ATTEND Internal Medicine Gastroenterology
DX: K62.5 Hemorrhage of anus and rectum (principal); K64.8 Other hemorrhoids; K29.50 Unspecified chronic gastritis without bleeding; B96.81 Helicobacter pylori [H. pylori] as the cause of diseases classified elsewhere; K31.89 Other diseases of stomach and duodenum; K21.00 Gastro-esophageal reflux disease with esophagitis, without bleeding; K22.10 Ulcer of esophagus without bleeding; K44.9 Diaphragmatic hernia without obstruction or gangrene; Z79.899 Other long term (current) drug therapy; Z90.49 Acquired absence of other specified parts of digestive tract; Z98.890 Other specified postprocedural states
CPT/HCPCS: 36415; 43239; 45378; 80053; 81001; 85025; 85610; 85730; 88305; 88342; J2003; J2704; J7030